=== PATIENT | female | born 1990 | race Caucasian/White ===

== ENCOUNTER 2018-01-10 18:30 | Emergency (ER) | payer OTHER ==
[2018-01-10 18:44] VITALS: BP 151/96; PULSE 75; RESP 22; TEMP 97.2; O2SAT 100
[2018-01-10] MEDS ORDERED: TETRACAINE/BENZOCAINE/BUTAMBEN 200 SPRAY TP ONE (18:58)
[2018-01-10] MEDS ORDERED: TETRACAINE/BENZOCAINE/BUTAMBEN 200 SPRAY ONE (18:59)
[2018-01-10] MEDS ORDERED: KETOROLAC TROMETHAMINE 30 MG/ML SOL ONE (19:02)
[2018-01-10] MEDS ORDERED: KETOROLAC TROMETHAMINE 30 MG/ML SOL IM ONE (19:02)
== END 2018-01-10 19:21 | disposition home or self-care (01) | DRG 159 ==
LOC: ED 18:30
DX: K08.89 Other specified disorders of teeth and supporting structures (principal); Z91.14 Patient's other noncompliance with medication regimen
CPT/HCPCS: 96372; 99282; J1885; A9270-GY

== ENCOUNTER 2019-03-05 09:00 | Emergency (ER) | payer BC, OTHER ==
[2019-03-05] MEDS ORDERED: AMOXICILLIN 250 MG CAP PO ONE (09:45)
[2019-03-05] MEDS ORDERED: SODIUM CHLORIDE 0.9% FLUSH 10 ML SOL IV PRN (09:56)
[2019-03-05 09:57] LABS: BASOPHILS % (AUTO) 0 % (0-3); EOSINOPHILS % (AUTO) 2 % (0-9); HEMATOCRIT 33 % (35-47); HEMOGLOBIN 11.2 gm/dl (12.0-15.5); LYMPHOCYTES % (AUTO) 19.6 % (10-50); MEAN CORPUSCULAR HEMOGLOBIN 30.7 pg (27.0-32.0); MEAN CORPUSCULAR HGB CONC 33.5 gm/dl (32.0-36.0); MEAN CORPUSCULAR VOLUME 92 fL (81-99); MONOCYTES % (AUTO) 5.8 % (0-12); NEUTROPHILS % (AUTO) 72.5 % (37-80)
[2019-03-05] MEDS ORDERED: SODIUM CHLORIDE 0.9% 1000ML 1,000 ML IV SCH (10:00)
[2019-03-05 10:03] LABS: CALCIUM 8.3 mg/dl (8.5-10.1); CARBON DIOXIDE 25.5 mEq/L (21-32); CREATININE 0.65 mg/dl (0.60-1.00); POTASSIUM 3.6 mMol/L (3.5-5.1)
[2019-03-05 10:25] VITALS: TEMP 98.4
[2019-03-05] MEDS ORDERED: AMOXICILLIN(FRIDGE) 125/5 ML BOTTLE PO ONE (10:40)
[2019-03-05 10:41] LABS: APPEARANCE,URINE Clear; BILIRUBIN,URINE NEGATIVE (NEGATIVE); COLOR,URINE Yellow; GLUCOSE, URINE (UA) NEGATIVE (NEGATIVE); KETONES,URINE NEGATIVE (NEGATIVE); LEUKOCYTE ESTERASE ,URINE NEGATIVE (NEGATIVE); NITRATE,URINE NEGATIVE (NEGATIVE); OCCULT BLOOD,URINE NEGATIVE (NEG-TRACE); PH,URINE 7.5; UROBILINOGEN,URINE 0.2 (0.2-1.0 EU)
[2019-03-05] MEDS ORDERED: AMOXICILLIN(FRIDGE) 125/5 ML BOTTLE ONE (10:41)
[2019-03-05 10:54] LABS: BACTERIA 1+ (< 1+); CRYSTALS NEGATIVE (0-3 AVE/HPF); RBC,URINE 0-2 (0-3AV/HPF); WBC,URINE 0-2 (0-5AV/HPF)
[2019-03-05 11:23] VITALS: BP 110/68; PULSE 72; RESP 18; O2SAT 100
== END 2019-03-05 11:40 | disposition home or self-care (01) ==
LOC: ED 09:00
DX: J01.10 Acute frontal sinusitis, unspecified (principal); G44.89 Other headache syndrome; E86.0 Dehydration; Z3A.10 10 weeks gestation of pregnancy
CPT/HCPCS: 36415; 80048; 81001; 85025; 96365; 99282; 99284; A9270-GY

== ENCOUNTER 2019-05-04 07:57 | Emergency (ER) | payer BC, OTHER ==
[2019-05-04 07:57] VITALS: O2SAT 100
[2019-05-04 09:03] VITALS: BP 113/67; PULSE 81; RESP 16; TEMP 96.6
== END 2019-05-04 10:24 | disposition home or self-care (01) | DRG 556 ==
LOC: ED 07:57
DX: M25.571 Pain in right ankle and joints of right foot (principal); S93.411A Sprain of calcaneofibular ligament of right ankle, initial encounter; Z33.1 Pregnant state, incidental
CPT/HCPCS: 73610; 99283; L4360